=== PATIENT | male | born 1995 | race Caucasian/White ===

== ENCOUNTER 2020-06-29 10:37 | Emergency (ER) | payer OTHER, SELFPAY ==
[2020-06-29 11:08] VITALS: BP 128/92; PULSE 106; RESP 16; TEMP 37.3; O2SAT 97
--- NOTE | 2020-06-29 11:24 | ED.URI ---
HPI - URI/Sore Throat General Chief Complaint: Upper Respiratory Infection Stated Complaint: cough/ n/v History of Present Illness HPI Narrative: This is a 24-year-old male comes in complaining of coughing for the past 3 days. Patient states that he has an inhaler that he was given last severe tries not to use too much of it because he is running out does not have a primary care provider. Patient is making sure that he is not positive for Covid and will need to go back to work Related Data Home Medications Medication Instructions Recorded Confirmed Inhaler 06/29/20 Allergies Allergy/AdvReac Type Severity Reaction Status Date / Time No Known Allergies Allergy Verified 06/29/20 11:39 Review of Systems Review of Systems: Narrative: CONSTITUTIONAL: reports fever, chills, or sweats. EYES: Denies visual changes, redness, or discharge. ENT: reports rhinorrhea, congestion, sore throat, or otalgia. CARDIOVASCULAR:Denies chest pain, palpitations, or edema. RESPIRATORY: reports cough or dyspnea. GASTROINTESTINAL: Denies abdominal pain, nausea, vomiting, or diarrhea. GENITOURINARY: Denies dysuria or hematuria. SKIN:[Denies rash or itching. MUSCULOSKELETAL:Denies back pain, joint pain, or myalgia. NEUROLOGIC: Denies headache, numbness, or weakness. PSYCHIATRIC:Denies anxiety or depression PMFSH Comments At time as signature, I have reviewed and agree with nursing past medical, social, surgical and family history. Please see nursing chart for further information. There is no relevant family history pertinent to the presenting complaint. Exam Narrative: Exam Narrative: GENERAL:Well-appearing, well-nourished, and in no acute distress. HEAD:Normocephalic, atraumatic. EYES: PERRLA and EOMI. ENT: Nares clear, no rhinorrhea or epistaxis. Mucous membranes moist. NECK: Supple. CHEST: Clear to auscultation diminished in lower lobes. No respiratory distress. HEART: Regular rate and rhythm. No murmur heard. Normal peripheral pulses. ABDOMEN: Soft, nontender, nondistended, normal active bowel sounds. EXTREMITIES: Normal range of motion. No edema. SKIN: Warm, dry, no rash. NEURO: No focal deficits. Alert and oriented x3. Course Vital Signs Vital signs: Vital Signs Temperature 99.2 F 06/29/20 11:08 Pulse Rate 106 H 06/29/20 11:08 Respiratory Rate 16 06/29/20 11:08 Blood Pressure 128/92 H 06/29/20 11:08 Pulse Oximetry 97 06/29/20 11:08 Temperature 99.2 F 06/29/20 11:08 Pulse Rate 106 H 06/29/20 11:08 Respiratory Rate 16 06/29/20 11:08 Blood Pressure 128/92 H 06/29/20 11:08 Pulse Oximetry 97 06/29/20 11:08 MDM - URI/Sore Throat MDM Narrative Medical decision making narrative: Negative influenza Negative Covid 19 PCR sent off awaiting results Differential Diagnosis Differential diagnosis: Likely upper respiratory infection, sinusitis, viral infection, influenza and other (COVID19) Discharge Plan Discharge Clinical Impression: Suspected 2019 novel coronavirus infection Upper respiratory infection Qualifiers: URI type: unspecified viral URI Qualified Code(s): J06.9 - Acute upper respiratory infection, unspecified Patient Disposition: Home, Self-Care Condition: Stable Instructions: Antibiotic Form, Methylprednisolone (By mouth), COVID-19 (Coronavirus Disease 2019) (ED), Face Coverings (Masks) and COVID-19 (ED) Additional Instructions: COVID-19 DISCHARGE The following recommendations have been made by the CDC and local Health Departments, regarding COVID-19: Those individuals with mild cases of COVID-19 can generally be discontinued from isolation, 10 days AFTER the onset of symptoms AND the resolution of fever for 24hrs (without the use of fever-reducing medications) Those individuals who were asymptomatic, and tested positive, are discontinued from isolation 10 days AFTER their first positive COVID-19 test Those individuals with SEVERE to CRITICAL illness or immunocom
[2020-06-30 17:38] LABS: SARS-CoV-2 RNA PCR Positive
== END 2020-06-29 11:51 | disposition home or self-care (01) ==
PROVIDERS: Emergency Provider Nurse Practitioner Family
DX: U07.1 COVID-19 (principal)
CPT/HCPCS: 87426; 87804; 99203; C9803; G0463; U0003; U0005

== ENCOUNTER 2020-10-17 10:56 | Emergency (ER) | payer SELFPAY ==
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
[2020-10-17 12:15] VITALS: BP 130/78; PULSE 90; RESP 20; TEMP 35.8; O2SAT 98
[2020-10-17] MEDS: KETOROLAC 30 MG/ML VIAL (*BKC) IV PUSH (13:03)
[2020-10-17 13:12] LABS: Basophils Percent Auto 0.2 % (0.2-1.2); Eosinophils Absolute Auto 0.2 K/mm3 (0-0.3); Eosinophils Percent Auto 2.1 % (0-4.4); Hematocrit 48.7 % (42.0-52.0); Hemoglobin 16.1 g/dL (14.0-18.0); Immature Granulocyte Absolute 0.05 K/mm3 (0.00-0.031); Immature Granulocyte Percent A 0.6 % (0-0.5); Lymphocytes Absolute Auto 1.86 K/mm3 (0.9-3.2); Lymphocytes Percent Auto 20.9 % (18.3-44.2); Mean Corpuscular HGB Conc 33.1 g/dl (32-36); Mean Corpuscular Hemoglobin 30.4 pg (26-34); Mean Corpuscular Volume 91.9 fl (80-100); Mean Platelet Volume 11.1 fl (7.4-10.4); Monocytes Absolute Auto 0.7 K/mm3 (0.1-0.6); Monocytes Percent Auto 8.3 % (2.6-8.5); Neutrophils Absolute Auto 6.1 K/mm3 (1.3-6.7); Neutrophils Percent Auto 67.9 % (45.5-73.1); Platelet Count Result 207 k/mm3 (150-375); Red Cell Distribution Width 12.4 % (11.5-14.5); White Blood Count 8.9 K/mm3 (4.5-10.0)
[2020-10-17 13:23] LABS: Alanine Aminotransferase 34 U/L (4-50); Albumin Level 4.6 g/dL (3.5-5.1); Alkaline Phosphatase 71 U/L (38-126); Anion Gap 5 mmol/L (8-16); Aspartate Amino Transferase 36 U/L (17-59); Bilirubin,Total 0.7 mg/dL (0.2-1.3); Blood Urea Nitrogen 14 mg/dL (9-20); Calcium 9.5 mg/dL (8.4-10.2); Carbon Dioxide 33 mmol/L (22-30); Chloride 102 mmol/L (98-107); Estimated CRCL calculation 153 ml/min; Estimated Glomerular Filt Rate > 60; Glucose 106 mg/dL (75-110); Potassium 3.9 mmol/L (3.4-5.0); Sodium 140 mmol/L (137-145)
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
--- NOTE | 2020-10-17 14:45 | PC.NURSE ---
Per confidential secretaryEdith, EMS will be here within the hour to transport pt. Informed pt of this.
[2020-10-17 15:10] VITALS: BP 130/73; PULSE 79; RESP 18; O2SAT 97
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
== END 2020-10-17 15:27 | disposition short-term general hospital (02) ==
PROVIDERS: Emergency Provider Emergency Medicine
DX: S36.021A Major contusion of spleen, initial encounter (principal); S37.012A Minor contusion of left kidney, initial encounter; V27.4XXA Motorcycle driver injured in collision with fixed or stationary object in traffic accident, initial encounter
CPT/HCPCS: 36415; 71260; 74177; 80053; 85025; 96374; 99284; 99285; J1885; L0140; Q9967